=== PATIENT | female | born 1975 ===

== ENCOUNTER 2016-08-29 18:16 | Emergency (ER) | payer MEDICAID ==
[2016-08-29 18:36] VITALS: BMI 33.2
[2016-08-29 18:39] VITALS: TEMP 99.1
--- NOTE | 2016-08-29 19:48 | ED PDOC ---
Arrival/HPI - General Chief Complaint: Breast Problem Time Seen by Provider: 08/29/16 19:23 Historian: Patient - History of Present Illness Narrative History of Present Illness (Text): 08/29/16 19:30 A 41 year old female, whose past medical history includes recent left breast lumpectomy (4 days ago), presents to the emergency department complaining of tenderness to the the site of surgery with mild discharge. Patient denies any fever or other complaints at this time. PMD: Dr. Maynard Surgeon: Dr. Avelar Time/Duration: < week Symptom Onset: Sudden Symptom Course: Unchanged Quality: Other Activities at Onset: Rest Context: Home Past Medical History - Provider Review Nursing Documentation Reviewed: Yes - Infectious Disease Hx of Infectious Diseases: None - Tetanus Immunization Tetanus Immunization: Unknown - Cardiac Hx Cardiac Disorders: Yes Hx Hypertension: Yes - Pulmonary Hx Respiratory Disorders: No - Neurological Hx Neurological Disorder: No - HEENT Hx HEENT Disorder: No - Renal Hx Renal Disorder: No - Endocrine/Metabolic Hx Endocrine Disorders: Yes Hx Diabetes Mellitus Type 2: Yes - Hematological/Oncological Hx Blood Disorders: No - Integumentary Hx Dermatological Disorder: No - Musculoskeletal/Rheumatological Hx Musculoskeletal Disorders: No - Gastrointestinal Hx Gastrointestinal Disorders: No - Genitourinary/Gynecological Hx Genitourinary Disorders: No - Psychiatric Hx Depression: No Hx Emotional Abuse: No Hx Physical Abuse: No Hx Substance Use: No - Surgical History Hx Breast Biopsy: Yes (07/16/16) Hx Musculoskeletal Surgery: Yes (left foot surgery) Other/Comment: Kidney Biopsy when she was 3 years old - Anesthesia Hx Anesthesia: No Hx Anesthesia Reactions: No Hx Malignant Hyperthermia: No - Suicidal Assessment Feels Threatened In Home Enviroment: No Family/Social History - Physician Review Nursing Documentation Reviewed: Yes Family/Social History: Unknown Family HX Smoking Status: Never Smoked Hx Alcohol Use: Yes Hx Substance Use: No Hx Substance Use Treatment: No Allergies/Home Meds Allergies/Adverse Reactions: Allergies No Known Allergies Allergy (Verified 06/27/16 10:29) Home Medications: Home Meds Medication Instructions Recorded Confirmed Lisinopril [Zestril] 10 mg PO DAILY 04/01/16 08/29/16 metFORMIN [glucOPHAGE] 500 mg PO BID 04/01/16 08/29/16 Ibuprofen [Motrin] 400 mg PO TID 08/29/16 08/29/16 oxyCODONE/Acetaminophen [Percocet 1 tab PO Q6 08/29/16 08/29/16 5/325 mg Tab] Review of Systems - Physician Review All systems were reviewed & negative as marked: Yes - Review of Systems Constitutional: absent: Fevers Respiratory: absent: SOB Cardiovascular: absent: Chest Pain Skin: Other (wound with discharge to the left breast follow a lumpectomy ) Physical Exam Vital Signs Reviewed: Yes Vital Signs Temp Pulse Resp BP Pulse Ox 08/29/16 20:11 82 18 120/77 96 08/29/16 18:36 99.1 F 85 16 150/90 98 Temperature: Afebrile Blood Pressure: Normal Pulse: Regular Respiratory Rate: Normal Appearance: Positive for: Well-Appearing, Non-Toxic, Comfortable Pain Distress: None Mental Status: Positive for: Alert and Oriented X 3 - Systems Exam Head: Present: Atraumatic, Normocephalic Pupils: Present: PERRL Extroacular Muscles: Present: EOMI Conjunctiva: Present: Normal Mouth: Present: Moist Mucous Membranes Neck: Present: Normal Range of Motion Respiratory/Chest: Present: Clear to Auscultation, Good Air Exchange. No: Respiratory Distress, Accessory Muscle Use Cardiovascular: Present: Regular Rate and Rhythm, Normal S1, S2. No: Murmurs Abdomen: Present: Normal Bowel Sounds. 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 No: Cyanosis, Edema Lower Extremity: Present: Normal Inspection. No: Edema Neurological: Present: GCS=15, CN II-XII Intact, Speech Normal Skin: Present: Warm, Dry, Normal Color. No: Rashes Psychiatric: Present: Alert, Oriented x 3, Normal Insight, Normal Concentration Medical Decision Making ED Course and Treatment: 08/29/16 19:30 Impression: A 41 year old female with recent lumpectomy with pain to the site. Differential Diagnosis include but are not limited to: post surgery pain Plan: -- Consult Surgeon -- Reassess and disposition Prior Visits: Notes and results from previous visits were reviewed. The patient last presented to the emergency department on 07/17/16 for evaluation of right ear pain. Progress Notes: Case discussed with surgeon who performed the procedure.He is aware and states the patient current symptoms are normal following a lumpectomy. Dr. Avelar states typical patient does not need antibiotics after the procedure. He states he will see the patient in the office in the next 24-48 hours. I have discussed the results and plan with the patient, who expresses understanding. Patient in agreement with plan to discharged home and follow up with Dr. Avelar in the office within the next 24-48 hours. Patient is stable for discharge. Will give patient Kelflex as prophylaxis. Patient was instructed return if symptoms worsen or new concerning symptoms arise. Patient instructed to continue pain medication as prescribed by Dr. Avelar. Local wound care given. - Medication Orders Current Medication Orders: Discontinued Medications Cephalexin Monohydrate (Keflex) 500 mg PO ONCE ONE PRN Reason: Protocol Stop: 08/29/16 19:46 Last Admin: 08/29/16 19:52 Dose: 500 MG - Scribe Statement The provider has reviewed the documentation as recorded by the Bright Mendoza Provider Scribe Attestation: All medical record entries made by the Bright were at my direction and personally dictated by me. I have reviewed the chart and agree that the record accurately reflects my personal performance of the history, physical exam, medical decision making, and the department course for this patient. I have also personally directed, reviewed, and agree with the discharge instructions and disposition. Disposition/Present on Arrival - Present on Arrival Any Indicators Present on Arrival: No History of DVT/PE: No History of Uncontrolled Diabetes: No Urinary Catheter: No History of Decub. Ulcer: No History Surgical Site Infection Following: None - Disposition Have Diagnosis and Disposition been Completed?: Yes Diagnosis: Wound of left breast, Status post surgery Disposition: HOME/ ROUTINE Disposition Time: 19:58 Patient Plan: Discharge Patient Problems: Current Active Problems Problem Status Diagnosed Status post surgery Acute Wound of left breast Acute Condition: GOOD Additional Instructions: Keep area clean and dry/take meds as prescribed/follow up with next 24- 48 hrs for follow up wound check as per his instructions/any worsening symptoms return to the emergency room Prescriptions: Cephalexin [cephalexin] 500 mg PO BID #14 cap Referrals: Mesha aMynard MD [Primary Care Provider] - Follow up with primary
[2016-08-29 20:11] VITALS: BP 120/77; PULSE 82; RESP 18; O2SAT 96
== END 2016-08-29 20:19 | disposition home or self-care (01) ==
LOC: ED 18:16
DX: Z48.89 Encounter for other specified surgical aftercare (principal)

== ENCOUNTER 2016-10-30 14:12 | Emergency (ER) | payer MEDICAID ==
[2016-10-30 14:13] VITALS: BMI 33.2
[2016-10-30 14:30] VITALS: RESP 18
[2016-10-30 14:52] VITALS: TEMP 98; O2SAT 100
[2016-10-30] MEDS ORDERED: Albuterol-Ipratrop 3 mg / 0.5 (3 ml) UD IH STA (14:54)
--- NOTE | 2016-10-30 14:55 | ED PDOC ---
Arrival/HPI - General Chief Complaint: Cough, Cold, Congestion Time Seen by Provider: 10/30/16 14:32 Historian: Patient - History of Present Illness Narrative History of Present Illness (Text): 10/30/16 14:33 A 41 year old female, whose past medical history includes pre diabetes and hypertension, presents to the emergency department complaining of right sided throat pain that began 4 days ago. Patient reports yesterday she developed a cough with congestion and had a slight headache. She notes this morning around 0500 she had a tightness sensation to the chest, which has resolved since. This was exacerbated by laying down. This sensation was not exertional in nature or associated with activity. Patient notes when coughing she has some abdominal discomfort. Patient says 4 days ago she had some right ear pain which spontaneously resolved but developed again today. She notes some difficulty in breathing due to the congestion but denies any fever, nausea, vomiting, urinary/ bowel changes, or other complaints at this time. She denies calf pain or swelling. Denies smoking. Denies family history of ME. Denies recent prolonged travel or immobilization. PMD: Dr. Maynard 10/30/16 17:14 Time/Duration: Other (4 days) Symptom Onset: Gradual Symptom Course: Worsening Quality: Tightness, Other Activities at Onset: Rest Context: Home Past Medical History - Provider Review Nursing Documentation Reviewed: Yes - Infectious Disease Hx of Infectious Diseases: None - Tetanus Immunization Tetanus Immunization: Unknown - Cardiac Hx Cardiac Disorders: Yes Hx Hypertension: Yes - Pulmonary Hx Respiratory Disorders: No - Neurological Hx Neurological Disorder: No - HEENT Hx HEENT Disorder: No - Renal Hx Renal Disorder: No - Endocrine/Metabolic Hx Endocrine Disorders: Yes Hx Diabetes Mellitus Type 2: Yes - Hematological/Oncological Hx Blood Disorders: No - Integumentary Hx Dermatological Disorder: No - Musculoskeletal/Rheumatological Hx Musculoskeletal Disorders: No - Gastrointestinal Hx Gastrointestinal Disorders: No - Genitourinary/Gynecological Hx Genitourinary Disorders: No - Psychiatric Hx Depression: No Hx Emotional Abuse: No Hx Physical Abuse: No Hx Substance Use: No - Surgical History Hx Breast Biopsy: Yes (07/16/16) Hx Musculoskeletal Surgery: Yes (left foot surgery) Other/Comment: Kidney Biopsy when she was 3 years old - Anesthesia Hx Anesthesia: No - Suicidal Assessment Feels Threatened In Home Enviroment: No Family/Social History - Physician Review Nursing Documentation Reviewed: Yes Family/Social History: Unknown Family HX Smoking Status: Never Smoked Hx Alcohol Use: Yes Hx Substance Use: No Hx Substance Use Treatment: No Allergies/Home Meds Allergies/Adverse Reactions: Allergies No Known Allergies Allergy (Verified 10/30/16 14:21) Home Medications: Home Meds Medication Instructions Recorded Confirmed Lisinopril [Zestril] 10 mg PO DAILY 04/01/16 10/30/16 metFORMIN [glucOPHAGE] 500 mg PO BID 04/01/16 10/30/16 Review of Systems - Review of Systems Constitutional: absent: Fevers Eyes: absent: Vision Changes ENT: Sore Throat, Sinus Congestion Respiratory: SOB, Cough. absent: Sputum Cardiovascular: Chest Pain Gastrointestinal: Abdominal Pain, Other (abdominal pain with coughing). absent : Stool Changes, Diarrhea, Nausea, Vomiting Genitourinary Female: absent: Dysuria, Frequency, Urine Output Changes, Vaginal Bleeding Musculoskeletal: absent: Back Pain, Neck Pain Skin: absent: Rash Neurological: Headache. absent: Dizziness Endocrine: absent: Polyuria Psychiatric: absent: Depression Physical Exam - Physical Exam Narrative Physical Exam (Text): Head: Atraumatic. Normocephalic. Eyes: PERRL. EOMI. Conjunctivae are not pale. Sclera anicteric. ENT: Mucous membranes are moist and intact. Oropharynx is clear, symmetric and there is no erythema or exudates. Right TM is bulging. There is clear nasal discharge, bilaterally. There is no uvular deviation. No drooling. No oropharyngeal petechiae or exudates. Neck: Supple. Full ROM. No JVD. Anterior cervical nodes palpated nontender not erythematous. No posterior lymphadenopathy noted. No meningeal signs. Cardiovascular: Regular rate. Regular rhythm. No murmurs, rubs, or gallops. Distal pulses are 2+ and symmetric. Pulmonary/Chest: No evidence of respiratory distress. Clear to auscultation bilaterally. No wheezing, rales or rhonchi. Abdominal: Mild epigastric tenderness with palpation. No rebound, guarding, or rigidity. No organomegaly. Good bowel sounds. No splenomegaly. Negative Singh 's sign. No lower abdomnal pain. Back: No CVA tenderness. No midline tenderness. Extremities: No edema. No cyanosis. No clubbing. Full range of motion in all extremities. No calf tenderness. Skin: Skin is warm and dry. No petechiae. No purpura. No rash noted on trunk or extremities. Neurological: Alert, awake, and oriented to person, place, time, and situation. Normal speech. No meningeal signs. Motor and sensory exam intact. No facial droop. Psychiatric: Good eye contact. Normal interaction, affect, and behavior. 10/30/16 17:16 Vital Signs Reviewed: Yes Vital Signs Temp Pulse Resp BP Pulse Ox 10/30/16 17:05 75 18 135/71 100 10/30/16 15:38 79 18 138/79 100 10/30/16 14:51 98.0 F 86 18 141/81 100 10/30/16 14:29 98.6 F 88 18 122/87 97 10/30/16 14:22 98.6 F 88 17 122/87 98 Temperature: Afebrile Blood Pressure: Normal Pulse: Regular Respiratory Rate: Normal Appearance: Positive for: Well-Appearing, Non-Toxic, Comfortable Pain Distress: Mild Mental Status: Positive for: Alert and Oriented X 3 Medical Decision Making ED Course and Treatment: 10/30/16 14:33 Impression: A 41 year old female with bodyaches after developed nasal congestion, cough. She reports cough has worsened. Reports abdominal pain with coughing. Differential Diagnosis include but are not limited to: Pneumonia vs. Viral illness vs. Gastritis vs. Bronchitis Prior Visits: Notes and results from previous visits were reviewed. The patient last presented to the emergency department on 08/29/16 for evaluation of breast tenderness. Progress Notes: Patient on exam is sniffling, congested. No facial edema noted. She reports sensation of shortness of breath BUT DENIES CHEST PAIN OR PLEURITIC PAIN. I suspect sensation of sob is secondary to nasal congestion as there is no noted hypoxia or respiratory distress or angioedema. No rash. No stridor. No pharyngeal erythema or exudates are noted. She reports a sensation in her chest that is worse when lying down, not described as pain. EKG unremarkable, she has had symptoms for 2-3 days, troponin unremarkable and she denies family hx of ME, symptoms not exertional. Nebulizer given due to persistent coughing in ED. After nebulizer, she reports her "chest feels better" on re-exam still sniffling but no hypoxia, no wheezing , no calf pain, no hypoxia, no back pain. LFTs noted to be elevated, but NO ruq pain or splenomegaly. There are no exudates or posterior cervical nodes palpated. Larue test ordered, I advised patient this test requires follow-up and at this time she has no significant abdominal discomfort. She denies urinary symptoms or colicky pain. ? uti on UA micro but she denies symptoms of UTI, no fever or cva tenderness noted. Chest xray is unremarkable, will d/c with zithromax and stressed need for re- evaluation of LFTs as well as reassessment of symptoms. On re-exam she is comfortable without significant pain or discomfort. Treatment plan, labs and imaging studies reviewed with patient. She denies weight loss or night sweats. Again advised follow-up of ultrasound findings with her PMD. Microscopic blood noted in urine with "fullness in collecting system" on ultrasound. She has no colicky pain and is comfortable. This was reviewed with patient in laymens' terms and need for urology follow-up also reviewed. 10/30/16 17:46 Patient reports that she has had microscopic hematuria "since I was a kid and it 's been checked out before". Discharge instructions given. Patient with no chest pain, no throat tightness, no abdominal pain, no back pain. - Lab Interpretations Lab Results: 10/30/16 15:00 10/30/16 15:45 Lab Results 10/30/16 15:45: Sodium 139, Potassium 3.6, Chloride 103, Carbon Dioxide 24, Anion Gap 16, BUN 10, Creatinine 0.7, Est GFR ( Amer) > 60, Est GFR (Non- Af Amer) > 60, Random Glucose 83, Calcium 9.2, Total Bilirubin 0.4, AST 92 H, ALT 119 H, Alkaline Phosphatase 103, Lactate Dehydrogenase 663, Total Creatine Kinase 148, Troponin I < 0.01, Total Protein 8.2, Albumin 4.6, Globulin 3.6, Albumin/Globulin Ratio 1.3 10/30/16 15:00: Urine Color Yellow, Urine Appearance Sl cloudy, Urine pH 6.0, Ur Specific [place] 1.015, Urine Protein Negative, Urine Glucose (UA) Negative, Urine Ketones Negative, Urine Blood Large H, Urine Nitrate Negative, Urine Bilirubin Negative, Urine Urobilinogen 0.2, Ur Leukocyte Esterase Small H, Urine RBC 25 - 30, Urine WBC 5 - 10, Ur Epithelial Cells 4 - 5, Urine Bacteria Mod, Urine HCG, Qual Negative 10/30/16 15:00: Influenza Typ A,B (EIA) Negative for flu a/b 10/30/16 15:00: WBC 9.8, RBC 4.57, Hgb 13.3, Hct 39.0, MCV 85.3, MCH 29.1, MCHC 34.1, RDW 15.1 H, Plt Count 279, MPV 11.1 H, Gran % 53.5, Lymph % (Auto) 34.7, Larue % (Auto) 8.8 H, Eos % (Auto) 2.5, Baso % (Auto) 0.5, Gran # 5.22, Lymph # 3.4, Larue # 0.9 H, Eos # 0.2, Baso # 0.05 I have reviewed the lab results: Yes - RAD Interpretation Radiology Orders: 10/30/16 14:51 CHEST TWO VIEWS (PA/LAT) [RAD] Stat 10/30/16 16:11 ABDOMEN COMPLETE [US] Stat - EKG Interpretation EKG Interpretation (Text): 10/30/16 17:19 EKG at 14:33 normal sinus rhythm rate of [address] elevations Interpreted by ED Physician: Yes Type: 12 lead EKG - Medication Orders Current Medication Orders: Sodium Chloride (Sodium Chloride 0.9%) 1,000 mls @ 100 mls/hr IV .Q10H PETEY Last Admin: 10/30/16 15:51 Dose: 100 mls/hr Discontinued Medications Albuterol/Ipratropium (Duoneb 3 Mg/0.5 Mg (3 Ml) Ud) 3 ml IH STAT STA Stop: 10/30/16 14:55 Last Admin: 10/30/16 14:58 Dose: 3 ml Ketorolac Tromethamine (Toradol) 30 mg IVP ONCE ONE Stop: 10/30/16 15:35 Last Admin: 10/30/16 15:53 Dose: 30 mg - Scribe Statement The provider has reviewed the documentation as recorded by the Minervaibazul Mendoza Provider Scribe Attestation: All medical record entries made by the Minervaibazul were at my direction and personally dictated by me. I have reviewed the chart and agree that the record accurately reflects my personal performance of the history, physical exam, medical decision making, and the department course for this patient. I have also personally directed, reviewed, and agree with the discharge instructions and disposition. Disposition/Present on Arrival - Present on Arrival Any Indicators Present on Arrival: No History of DVT/PE: No History of Uncontrolled Diabetes: No Urinary Catheter: No History of Decub. Ulcer: No History Surgical Site Infection Following: None - Disposition Have Diagnosis and Disposition been Completed?: Yes Diagnosis: Sinusitis, Bronchitis, Elevated liver enzymes, Cough Disposition: HOME/ ROUTINE Disposition Time: 17:20 Patient Plan: Discharge Patient Problems: Current Active Problems Problem Status Onset Bronchitis Acute Cough Acute Elevated liver enzymes Acute Sinusitis Acute Condition: GOOD Discharge Instructions (ExitCare): Pharyngitis (ED), Sinusitis (ED), Acute Bronchitis (ED) Additional Instructions: Please take antibiotics as directed for possible bronchitis/sinusitis. If you develop any fevers, headaches, abdominal pain, any difficulty urinating or other urinary symptoms, any vomiting or diarrhea, any rash, any neck pain, any throat tightness, get rechecked immediately. Your "liver enzymes" are elevated. This requires re-evaluation by your physician , please follow-up with this finding with a supervisor soakers. Again, if you develop abdominal pain get re-evaluated immediately. For any persistent or worsening of symptoms, please get re-evaluated. Take antibiotics as directed. Follow-up with a president of the [place] as discussed. Thank you for letting us take care of you today. The emergency medical care you received today was directed at your acute symptoms. If you were prescribed any medication, please fill it and take as directed. It may take several days for your symptoms to resolve. Return to the Emergency Department if your symptoms worsen, do not improve, or if you have any other problems. Please contact your doctor or call one of the physicians/clinics you have been referred to that are listed on the Patient Visit Information form that is included in your discharge packet. Bring any paperwork you were given at discharge with you along with any medications you are taking to your follow up visit. Our treatment cannot replace ongoing medical care by a primary care provider (PCP) outside of the emergency department. Thank you for allowing the [facility] [employer] team to be part of your care today. If you had an X-Ray or CT scan: A Radiologist will review the ED reading if any change in treatment is needed we will contact you. If you had a blood, urine, or wound culture: It will take several days for the results, if any change in treatment is needed we will contact you. Prescriptions: Azithromycin [Zithromax] 250 mg PO DAILY #6 tab Referrals: Mesha Maynard MD [Primary Care Provider] - Follow up with primary Christian Yu MD [Staff Provider] - Follow up with primary Ronnie Lopez MD [Staff Provider] - Follow up with primary Forms: [employer] ([place])
[2016-10-30 15:14] LABS: ADD MANUAL DIFF? NO
[2016-10-30 15:28] LABS: URINE BILIRUBIN NEGATIVE (NEGATIVE); URINE BLOOD LARGE (NEGATIVE); URINE GLUCOSE (UA) NEGATIVE (NEGATIVE); URINE KETONE NEGATIVE (NEGATIVE); URINE LEUKOCYTE ESTERASE SMALL Leu/uL (NEGATIVE); URINE PROTEIN NEGATIVE mg/dL (<30 mg/dL); URINE UROBILINOGEN 0.2 E.U./dL (<1 E.U./dL)
[2016-10-30 15:29] LABS: BASO # 0.05 K/mm3 (0.0-2.0); BASO % 0.5 % (0.0-3.0); EOS # 0.2 (0.0-0.7); EOS % 2.5 % (1.5-5.0); GRAN # 5.22 (1.4-6.5); GRAN % 53.5 % (50.0-68.0); LYMPH # 3.4 (1.2-3.4); LYMPH % 34.7 % (22.0-35.0); MEAN CELL VOLUME 85.3 fL (80.0-105.0); MEAN CORPUSCULAR HEMOGLOBIN 29.1 pg (25.0-35.0); MEAN CORPUSCULAR HGB CONC 34.1 g/dl (31.0-37.0); MEAN PLATELET VOLUME 11.1 fl (7.0-11.0); MONO # 0.9 (0.1-0.6); MONO % 8.8 % (1.0-6.0); PLATELET COUNT 279 10^3/uL (120.0-450.0); RED CELL DISTRIBUTION WIDTH 15.1 % (11.5-14.5); WHITE BLOOD COUNT 9.8 10^3/ul (4.5-11.0)
[2016-10-30 15:32] LABS: URINE APPEARANCE SL CLOUDY (CLEAR); URINE COLOR YELLOW (YELLOW)
[2016-10-30 15:43] LABS: URINE BACTERIA MOD (NEG); URINE RBC 25 - 30 /hpf (0-2)
[2016-10-30] MEDS ORDERED: Sodium Chloride 0.9% 1,000 ML IV SCH (15:45)
[2016-10-30 16:02] LABS: ALB/GLOB RATIO 1.3 (1.1-1.8); ALKALINE PHOSPHATASE 103 U/L (38-133); ALT/SGPT 119 U/L (7-56); AST/SGOT 92 U/L (15-39); BILIRUBIN,TOTAL 0.4 mg/dL (0.2-1.3); BLOOD UREA NITROGEN 10 mg/dL (7-21); CALCIUM 9.2 mg/dL (8.4-10.5); CARBON DIOXIDE 24 mmol/L (21-33); CHLORIDE 103 mmol/L (98-107); GFR AFRICAN-AMERICAN > 60; GLUCOSE,RANDOM 83 mg/dL (70-110); POTASSIUM 3.6 mmol/L (3.6-5.0); SODIUM 139 mmol/L (132-148); TOTAL PROTEIN 8.2 g/dL (5.8-8.3)
--- NOTE | 2016-10-30 16:43 | RAD ---
HISTORY: cough COMPARISON: 06/27/2016. TECHNIQUE: Chest PA and lateral FINDINGS: LUNGS: No active pulmonary disease. PLEURA: No significant pleural effusion identified. No pneumothorax apparent. CARDIOVASCULAR: Normal. OSSEOUS STRUCTURES: No significant abnormalities. VISUALIZED UPPER ABDOMEN: Normal. OTHER FINDINGS: None. IMPRESSION: No active disease. No significant interval change compared to the prior examination(s).
[2016-10-30 17:03] LABS: TROPONIN I < 0.01 ng/mL
[2016-10-30 17:05] VITALS: BP 135/71; PULSE 75
--- NOTE | 2016-10-30 17:22 | US ---
HISTORY: Upper abdominal pain. COMPARISON: 02/13/2013 CT abdomen and pelvis TECHNIQUE: Sonographic evaluation of the abdomen. FINDINGS: LIVER: Measures 14.6 cm. Hepatopedal blood flow. Fatty infiltration manifest ultrasonographically as increased echogenicity of the liver parenchyma. No mass. No intrahepatic bile duct dilatation. GALLBLADDER: Unremarkable. No gallstones. COMMON BILE DUCT: Measures 3.8 mm. No stones. No dilatation. PANCREAS: Unremarkable as visualized. No mass. No ductal dilatation. RIGHT KIDNEY: Measures 5.2 x 10.6cm. Mild fullness right collecting system.Incidental finding(s): Echogenic focus non shadowing 9 mm upper pole. LEFT KIDNEY: Measures 5.7 x 11.2cm. Normal echogenicity. No calculus, mass, or hydronephrosis. SPLEEN: Normal in size and contour. No mass. AORTA: No aneurysmal dilatation. IVC: Unremarkable. OTHER FINDINGS: None. IMPRESSION: Mild fullness right collecting system. No obstructing abnormalities identified. Otherwise no significant findings.
--- NOTE | 2016-10-31 09:58 | CARD ---
APPROVED REPORT EKG Measurement Heart [id number] <Conclusion> Normal sinus rhythm Normal ECG
== END 2016-10-30 17:05 | disposition home or self-care (01) ==
LOC: ED 14:12
DX: R05 Cough (principal); J40 Bronchitis, not specified as acute or chronic; J32.9 Chronic sinusitis, unspecified; R74.8 Abnormal levels of other serum enzymes
CPT/HCPCS: 71020; 76700; 80053; 81001; 82550; 83615; 84484; 84703; 85025; 86308; 87086; 87804; 93005; 96374; 99284; J1885; J7040

== ENCOUNTER 2017-06-04 15:44 | Emergency (ER) | payer MEDICAID ==
[2017-06-04 15:44] VITALS: BMI 33.2
[2017-06-04 16:02] VITALS: BP 117/79; TEMP 97.8; O2SAT 98
--- NOTE | 2017-06-04 16:40 | ED PDOC ---
Arrival/HPI - General Chief Complaint: Eye Problem Time Seen by Provider: 06/04/17 16:16 Historian: Patient - History of Present Illness Narrative History of Present Illness (Text): 06/04/17 16:37 42 y/o female, nkda, c/o bilateral eyelid itching and irritation after using new eye make up product x 3 days. Itching with irritation on the eyelid, no change in vision, no painful eye movement, no fever or chills, no night sweat, no rash, no numbness or tingling, no other medical or psychological complaints. Past Medical History - Provider Review Nursing Documentation Reviewed: Yes - Infectious Disease Hx of Infectious Diseases: None - Tetanus Immunization Tetanus Immunization: Unknown - Cardiac Hx Cardiac Disorders: Yes Hx Hypertension: Yes - Pulmonary Hx Respiratory Disorders: No - Neurological Hx Neurological Disorder: No - HEENT Hx HEENT Disorder: No - Renal Hx Renal Disorder: No - Endocrine/Metabolic Hx Endocrine Disorders: Yes Hx Diabetes Mellitus Type 2: Yes - Hematological/Oncological Hx Blood Disorders: No - Integumentary Hx Dermatological Disorder: No - Musculoskeletal/Rheumatological Hx Musculoskeletal Disorders: No - Gastrointestinal Hx Gastrointestinal Disorders: No - Genitourinary/Gynecological Hx Genitourinary Disorders: No - Psychiatric Hx Depression: No Hx Emotional Abuse: No Hx Physical Abuse: No Hx Substance Use: No - Surgical History Hx Breast Biopsy: Yes (07/16/16) Hx Musculoskeletal Surgery: Yes (left foot surgery) Other/Comment: Kidney Biopsy when she was 3 years old - Anesthesia Hx Anesthesia: No - Suicidal Assessment Feels Threatened In Home Enviroment: No Family/Social History - Physician Review Nursing Documentation Reviewed: Yes Family/Social History: Unknown Family HX Smoking Status: Never Smoked Hx Alcohol Use: Yes Hx Substance Use: No Hx Substance Use Treatment: No Allergies/Home Meds Allergies/Adverse Reactions: Allergies No Known Allergies Allergy (Verified 06/04/17 15:59) Home Medications: Home Meds Medication Instructions Recorded Confirmed Lisinopril [Zestril] 10 mg PO DAILY 04/01/16 06/04/17 metFORMIN [glucOPHAGE] 500 mg PO BID 04/01/16 06/04/17 Review of Systems - Review of Systems Constitutional: absent: Fatigue, Fevers Eyes: absent: Vision Changes ENT: absent: Hearing Changes Respiratory: absent: SOB, Cough Cardiovascular: absent: Chest Pain Gastrointestinal: absent: Abdominal Pain, Nausea, Vomiting Skin: Rash. absent: Pruritis Neurological: absent: Headache, Dizziness Psychiatric: absent: Anxiety, Depression Physical Exam Vital Signs Reviewed: Yes Vital Signs Temp Pulse Resp BP Pulse Ox 06/04/17 16:01 97.8 F 105 H 17 117/79 98 Temperature: Afebrile Blood Pressure: Normal Pulse: Tachycardic Respiratory Rate: Normal Appearance: Positive for: Well-Appearing, Non-Toxic, Comfortable Pain Distress: None Mental Status: Positive for: Alert and Oriented X 3 - Systems Exam Head: Present: Atraumatic, Normocephalic Pupils: Present: PERRL, Other (There is mild lichenification rash and bilateral clear tear conjunctivitis noted on the bilateral eyes, no hyphema or subconjunctival hemorrage, bilateral upper and lower eyelids everted with no visible foreign bodies, no periorbital cellulitis or facial cellulitis, no painful movement of the eye. ) Extroacular Muscles: Present: EOMI Conjunctiva: Present: Normal Mouth: Present: Moist Mucous Membranes Neck: Present: Normal Range of Motion Respiratory/Chest: Present: Clear to Auscultation, Good Air Exchange. No: Respiratory Distress, Accessory Muscle Use Cardiovascular: Present: Regular Rate and Rhythm, Normal S1, S2. No: Murmurs Abdomen: Present: Normal Bowel Sounds. No: Tenderness, Distention, Peritoneal Signs Back: Present: Normal Inspection Upper Extremity: Present: Normal Inspection. No: Cyanosis, Edema Lower Extremity: Present: Normal Inspection. No: Edema Neurological: Present: GCS=15, CN II-XII Intact, Speech Normal Skin: Present: Warm, Dry, Normal Color. No: Rashes Psychiatric: Present: Alert, Oriented x 3, Normal Insight, Normal Concentration Medical Decision Making ED Course and Treatment: 06/04/17 16:42 -Pt. admits eye itching but no pain. -Discharge home with erythromycin opthalmic, zyrtec, zaditor, avoid eye make up for 7 days, follow up with your own pmd and opthalmologist within 2 days, return to the ER for any new or worsening signs or symptoms. - PA / PLASTICS FABRICATOR OR WELDER / Resident Statement MD/DO has reviewed & agrees with the documentation as recorded. Disposition/Present on Arrival - Present on Arrival Any Indicators Present on Arrival: No History of DVT/PE: No History of Uncontrolled Diabetes: No Urinary Catheter: No History of Decub. Ulcer: No History Surgical Site Infection Following: None - Disposition Have Diagnosis and Disposition been Completed?: Yes Diagnosis: Bilateral eye complaint Disposition: HOME/ ROUTINE Disposition Time: 16:44 Patient Plan: Discharge Condition: GOOD Additional Instructions: -Discharge home with erythromycin opthalmic, zyrtec, zaditor, avoid eye make up for 7 days, follow up with your own pmd and opthalmologist within 2 days, return to the ER for any new or worsening signs or symptoms. Prescriptions: Cetirizine HCl [Zyrtec] 10 mg PO DAILY #10 tab.rapdis Erythromycin 0.5% [Ilytocin] 0.5 in OP QID #1 tube Ketotifen Fumarate [Zaditor] 1 drop OP TID #1 bot Referrals: [facility] at [facility] [place] [Outside] - Follow up with primary Dalton Mix MD [Staff Provider] - Follow up with primary Forms: [facility] (Romanian), WORK NOTE
[2017-06-04 17:01] VITALS: PULSE 95
[2017-06-04 17:11] VITALS: RESP 18
== END 2017-06-04 17:07 | disposition home or self-care (01) ==
LOC: ED 15:44
DX: H57.8 Other specified disorders of eye and adnexa (principal)

== ENCOUNTER 2017-10-09 16:18 | Emergency (ER) | payer MEDICAID ==
[2017-10-09 16:49] VITALS: BMI 35.4
[2017-10-09] MEDS ORDERED: Amoxicillin-Clav 875-125 mg Tab PO STA (17:03)
[2017-10-09] MEDS ORDERED: DiphenhydrAMINE 50 mg/ml Inj IM STA (17:03)
--- NOTE | 2017-10-09 17:03 | ED PDOC ---
Arrival/HPI - General Time Seen by Provider: 10/09/17 16:49 Historian: Patient - History of Present Illness Narrative History of Present Illness (Text): 10/09/17 16:53 42 y/o female pmh including htn and dm, nkda, c/o nasal congestion/throat and cough x 3 days. Nasal congestion, associated with runny nose, aching throat pain 2/10, associated with dry coughing, no dizziness, no chest pain or shortness of breath, no rash, no numbness or tingling, no other medical or psychological complaints. Past Medical History - Provider Review Nursing Documentation Reviewed: Yes - Infectious Disease Hx of Infectious Diseases: None - Tetanus Immunization Tetanus Immunization: Unknown - Cardiac Hx Cardiac Disorders: Yes Hx Hypertension: Yes - Pulmonary Hx Respiratory Disorders: No - Neurological Hx Neurological Disorder: No - HEENT Hx HEENT Disorder: No - Renal Hx Renal Disorder: No - Endocrine/Metabolic Hx Endocrine Disorders: Yes Hx Diabetes Mellitus Type 2: Yes - Hematological/Oncological Hx Blood Disorders: No - Integumentary Hx Dermatological Disorder: No - Musculoskeletal/Rheumatological Hx Musculoskeletal Disorders: No - Gastrointestinal Hx Gastrointestinal Disorders: No - Genitourinary/Gynecological Hx Genitourinary Disorders: No - Psychiatric Hx Depression: No Hx Emotional Abuse: No Hx Physical Abuse: No Hx Substance Use: No - Surgical History Hx Breast Biopsy: Yes (07/16/16) Hx Musculoskeletal Surgery: Yes (left foot surgery) Other/Comment: Kidney Biopsy when she was 3 years old - Anesthesia Hx Anesthesia: No - Suicidal Assessment Feels Threatened In Home Enviroment: No Family/Social History - Physician Review Nursing Documentation Reviewed: Yes Family/Social History: Unknown Family HX Smoking Status: Never Smoked Hx Alcohol Use: Yes Hx Substance Use: No Hx Substance Use Treatment: No Allergies/Home Meds Allergies/Adverse Reactions: Allergies No Known Allergies Allergy (Verified 06/04/17 15:59) Home Medications: Home Meds Medication Instructions Recorded Confirmed Lisinopril [Zestril] 10 mg PO DAILY 04/01/16 06/04/17 metFORMIN [glucOPHAGE] 500 mg PO BID 04/01/16 06/04/17 Review of Systems - Review of Systems Constitutional: absent: Fatigue, Fevers Eyes: absent: Vision Changes ENT: Sore Throat, Rhinorrhea. absent: Hearing Changes Respiratory: Cough. absent: SOB Cardiovascular: absent: Chest Pain Gastrointestinal: absent: Abdominal Pain, Diarrhea, Nausea, Vomiting Skin: absent: Rash, Pruritis Neurological: absent: Headache, Dizziness Psychiatric: absent: Anxiety, Depression, Suicidal Ideation Physical Exam Vital Signs Temp Pulse Resp BP Pulse Ox 10/09/17 19:20 88 18 130/78 99 10/09/17 17:30 98.3 F 86 18 131/80 98 Pain Distress: Mild - Systems Exam Head: Present: Atraumatic, Normocephalic, Other (+ttp on the lt. maxillary sinus region with no periorbital swelling. ) Pupils: Present: PERRL Extroacular Muscles: Present: EOMI Conjunctiva: Present: Normal Ears: Present: NORMAL TM, Normal Canal. No: Erythema Mouth: Present: Moist Mucous Membranes Pharnyx: No: ERYTHEMA, EXUDATE, TONSILS ENLARGED Nose (External): Present: Atraumatic. No: Abrasion, Contusion, Laceration Nose (Internal): Present: Normal Inspection, No Active Bleeding, Rhinorrhea. No : Septal Hematoma, Epistaxis Neck: Present: Normal Range of Motion, Trachea Midline. No: Meningeal Signs, MIDLINE TENDERNESS, Paraspinal Tenderness, Lymphadenopathy Respiratory/Chest: Present: Clear to Auscultation, Good Air Exchange. No: Respiratory Distress, Accessory Muscle Use, Wheezes, Decreased Breath Sounds, Retracting, Rhonchi Cardiovascular: Present: Regular Rate and Rhythm, Normal S1, S2. No: Murmurs Abdomen: No: Tenderness, Distention, Peritoneal Signs, Rebound, Guarding Back: Present: Normal Inspection Upper Extremity: Present: Normal Inspection. No: Cyanosis, Edema Lower Extremity: Present: Normal Inspection. No: Edema Neurological: Present: GCS=15, CN II-XII Intact, Speech Normal, Motor Func Grossly Intact, Gait Normal, Memory Normal Skin: Present: Warm, Dry, Normal Color. No: Rashes Psychiatric: Present: Alert, Oriented x 3, Normal Insight, Normal Concentration Medical Decision Making ED Course and Treatment: 10/09/17 17:07 -duoneb/augmentin/benadryl/sudafed -chest xray 10/09/17 17:57 -Urine hcg is negative. -Chest xray show no active disease -Pt. feels better, will discharge home. -Discharge home with augmentin, claritin, flonase, motrin, stay hydrated, follow up with your own pmd and ENT within 2 days, return to [facility] ER for any new or worsening signs or symptoms. - RAD Interpretation Radiology Orders: 10/09/17 17:03 CHEST PORTABLE [RAD] Stat no active disease Dry Plasterer Helper: Radiologist - Medication Orders Current Medication Orders: Discontinued Medications Albuterol/Ipratropium (Duoneb 3 Mg/0.5 Mg (3 Ml) Ud) 3 ml IH STAT STA Stop: 10/09/17 17:08 Last Admin: 10/09/17 17:52 Dose: 3 ml Amoxicillin/Clavulanate Potassium (Augmentin 875 Mg-125 Mg Tab) 1 tab PO STAT STA PRN Reason: Protocol Stop: 10/09/17 17:04 Last Admin: 10/09/17 17:53 Dose: 1 tab Diphenhydramine HCl (Benadryl) 50 mg IM STAT STA Stop: 10/09/17 17:04 Last Admin: 10/09/17 17:53 Dose: 50 mg IM Administration Charges Document 10/09/17 17:53 EQ (Rec: 10/09/17 17:53 EQ [id number]) Injection Site MAR Injection Site Left Deltoid Charges for Administration # of IM Administrations 1 Pseudoephedrine HCl (Sudafed Tab) 30 mg PO STAT STA Stop: 10/09/17 17:04 Last Admin: 10/09/17 17:52 Dose: 30 mg - PA / STATISTICAL MODELER / Resident Statement MD/DO has reviewed & agrees with the documentation as recorded. Disposition/Present on Arrival - Present on Arrival Any Indicators Present on Arrival: No History of DVT/PE: No History of Uncontrolled Diabetes: No Urinary Catheter: No History of Decub. Ulcer: No History Surgical Site Infection Following: None - Disposition Have Diagnosis and Disposition been Completed?: Yes Diagnosis: Sinusitis Disposition: HOME/ ROUTINE Disposition Time: 17:09 Patient Plan: Discharge Condition: IMPROVED Additional Instructions: -Discharge home with augmentin, claritin, flonase, motrin, stay hydrated, follow up with your own pmd and ENT within 2 days, return to [facility] for any new or worsening signs or symptoms. Prescriptions: Amoxicillin/Clavulanate [Augmentin 875 MG-125 MG] 1 tab PO BID #10 tab Fluticasone Nasal [Flonase] 1 spr NS DAILY #1 bot Ibuprofen [Motrin Tab] 600 mg PO QID PRN #30 tab PRN Reason: Other Loratadine [Claritin] 10 mg PO DAILY PRN #14 tab PRN Reason: Other Referrals: Siddhartha Meda DO [Staff Provider] - Follow up with primary [facility] at [facility] [place] [Outside] - Follow up with primary Forms: WORK NOTE
[2017-10-09] MEDS ORDERED: Albuterol-Ipratrop 3 mg / 0.5 (3 ml) UD IH STA (17:07)
[2017-10-09 17:33] VITALS: RESP 18; TEMP 98.3
[2017-10-09 19:46] VITALS: BP 130/78; PULSE 88; O2SAT 99
--- NOTE | 2017-10-10 08:53 | RAD ---
HISTORY: medical clearance COMPARISON: 10/30/2016 FINDINGS: LUNGS: No active pulmonary disease. PLEURA: No significant pleural effusion identified, no pneumothorax apparent. CARDIOVASCULAR: Normal. OSSEOUS STRUCTURES: No significant abnormalities. VISUALIZED UPPER ABDOMEN: Normal. OTHER FINDINGS: None. IMPRESSION: No active disease.
== END 2017-10-09 19:20 | disposition home or self-care (01) ==
LOC: ED 16:18
DX: J32.9 Chronic sinusitis, unspecified (principal)
CPT/HCPCS: 71045; 96372; 99283; J1200

== ENCOUNTER 2018-05-06 10:35 | Emergency (ER) | payer MEDICAID ==
[2018-05-06 10:35] VITALS: BMI 35.4
[2018-05-06 10:45] VITALS: RESP 18; TEMP 98.6
--- NOTE | 2018-05-06 11:28 | ED PDOC ---
Arrival/HPI - General Chief Complaint: Back Pain Time Seen by Provider: 05/06/18 10:47 Historian: Patient - History of Present Illness Narrative History of Present Illness (Text): 05/06/18 11:28 43 f with pmhx of hypertension, pre-diabetes, menopausal symptoms, and sciatica presents to the ED with back pain since two days ago. Patient reports she was bending down tying her shoelaces and as she moved to stand up she felt a shoo ting pain in the middle of her back that radiated to her buttocks. Patient denies any leg pain, chest pain, nausea, vomiting. or any other complaints. PMD: Mesha Regalado Time/Duration: Other (2 days) Symptom Onset: Gradual Activities at Onset: Light Context: Home Past Medical History - Provider Review Nursing Documentation Reviewed: Yes - Infectious Disease Hx of Infectious Diseases: None - Tetanus Immunization Tetanus Immunization: Unknown - Cardiac Hx Cardiac Disorders: Yes Hx Hypertension: Yes - Pulmonary Hx Respiratory Disorders: No - Neurological Hx Neurological Disorder: No - HEENT Hx HEENT Disorder: No - Renal Hx Renal Disorder: No - Endocrine/Metabolic Hx Endocrine Disorders: Yes Hx Diabetes Mellitus Type 2: Yes - Hematological/Oncological Hx Blood Disorders: No - Integumentary Hx Dermatological Disorder: No - Musculoskeletal/Rheumatological Hx Musculoskeletal Disorders: No - Gastrointestinal Hx Gastrointestinal Disorders: No - Genitourinary/Gynecological Hx Genitourinary Disorders: No - Psychiatric Hx Depression: No Hx Emotional Abuse: No Hx Physical Abuse: No Hx Substance Use: No - Surgical History Hx Breast Biopsy: Yes (07/16/16) Hx Musculoskeletal Surgery: Yes (left foot surgery) Other/Comment: Kidney Biopsy when she was 3 years old - Anesthesia Hx Anesthesia: No - Suicidal Assessment Feels Threatened In Home Enviroment: No Family/Social History - Physician Review Nursing Documentation Reviewed: Yes Family/Social History: No Known Family HX Smoking Status: Never Smoked Hx Alcohol Use: Yes Hx Substance Use: No Hx Substance Use Treatment: No Allergies/Home Meds Allergies/Adverse Reactions: Allergies No Known Allergies Allergy (Verified 05/06/18 10:45) Home Medications: Home Meds Medication Instructions Recorded Confirmed Lisinopril [Zestril] 10 mg PO DAILY 04/01/16 05/06/18 metFORMIN [glucOPHAGE] 500 mg PO BID 04/01/16 05/06/18 Review of Systems - Physician Review All systems were reviewed & negative as marked: Yes - Review of Systems Cardiovascular: absent: Chest Pain Gastrointestinal: absent: Normal, Nausea Musculoskeletal: Back Pain (+back pain radiating to buttocks). absent: Other (no leg pain) Physical Exam - Physical Exam Narrative Physical Exam (Text): 05/06/18 12:22 Gen: VS reviewed, alert, well developed, well nourished, nontoxic, mild distress. ENT: normal pharynx. Eye: EOMI, PERRL. Neck: no JVD, supple, no adenopathy. CV: regular rate, regular rhythm, no rubs, no murmur, no gallops, S1, S2, pulses equal and strong. Pulm: no distress, clear to auscultation, no wheeze, no rhonchi, breath sounds equal, no rales. Abd: soft, nontender, no guarding, no rebound, no rigidity, normal bowel sounds. Back: mild lumbar paraspinal tenderness and spasm. Ext: limited range of motion at hips, pain upon movement. Skin: good color, no rash, no cyanosis. Psych: responds appropriately to questions, normal affect. Neuro: oriented x 3, CN2-12 intact grossly, motor intact, sensation intact. Vital Signs Reviewed: Yes Vital Signs Temp Pulse Resp BP Pulse Ox 05/06/18 10:43 98.6 F 78 18 141/90 97 Temperature: Afebrile Blood Pressure: Normal Pulse: Regular Respiratory Rate: Normal Appearance: Positive for: Well-Appearing Medical Decision Making ED Course and Treatment: 05/06/18 14:41 patient was seen for acute low back pain, no neuro deficits, no fever, no trauma, no saddle anesthesia. patient reports improvement in symptoms and is able to ambulate comfortably. patient discharged in stable condition and will follow up with her pcp. - RAD Interpretation Narrative RAD Interpretations (Text): 05/06/18 14:48 Procedure: Lumbar spine Time: 05/06/2018 14:08:54 Dictator: Liane Perez MD Impression: Unremarkable radiographs of the lumbar spine. Safe Deposit Clerk: Radiologist - Scribe Statement The provider has reviewed the documentation as recorded by the Minervaibazul Sandoval All medical record entries made by the Minervaibazul were at my direction and personally dictated by me. I have reviewed the chart and agree that the record accurately reflects my personal performance of the history, physical exam, medical decision making, and the department course for this patient. I have also personally directed, reviewed, and agree with the discharge instructions and disposition. Disposition/Present on Arrival - Present on Arrival Any Indicators Present on Arrival: No History of DVT/PE: No History of Uncontrolled Diabetes: No Urinary Catheter: No History of Decub. Ulcer: No History Surgical Site Infection Following: None - Disposition Have Diagnosis and Disposition been Completed?: Yes Diagnosis: Low back pain Disposition: HOME/ ROUTINE Disposition Time: 14:43 Patient Plan: Discharge Patient Problems: Current Active Problems Problem Status Onset Low back pain Acute Discharge Instructions (ExitCare): Low Back Pain (DC) Prescriptions: Cyclobenzaprine [Flexeril] 5 mg PO TID #15 tab Ketorolac Tromethamine [Toradol] 10 mg PO Q6H 5 Days #20 tab Lidocaine 5% [Lidoderm] 1 ea TD Q12H #14 patch Referrals: Mesha Maynard MD [Primary Care Provider] - Follow up with primary Forms: [facility] (Romansh), WORK NOTE
[2018-05-06] MEDS ORDERED: Lidocaine 5% Patch TD STA (12:18)
--- NOTE | 2018-05-06 14:12 | RAD ---
Date of service: 05/06/2018 PROCEDURE: Radiographs of the Lumbar Spine. HISTORY: pain COMPARISON: None available. FINDINGS: BONES: Alignment appears satisfactory. No listhesis. No acute displaced fracture identified. DISC SPACES: Unremarkable. OTHER FINDINGS: None. IMPRESSION: Unremarkable radiographs of the lumbar spine.
[2018-05-06 14:55] VITALS: BP 145/70; PULSE 88; O2SAT 98
== END 2018-05-06 14:54 | disposition home or self-care (01) ==
LOC: ED 10:35
DX: M54.5 Low back pain (principal); E11.9 Type 2 diabetes mellitus without complications; I10 Essential (primary) hypertension
CPT/HCPCS: 72110; 99283; J1885